=== PATIENT | female | born 1965 | race Asian ===

== ENCOUNTER 2019-06-03 21:07 | Emergency (ER) | payer BC ==
[~2019-06-03] VITALS: Ht 152.4 cm; Wt 58.5 kg
[2019-06-03 21:21] VITALS: BP_SYST 114
[2019-06-03 23:20] VITALS: BP_SYST 116
== END 2019-06-03 23:20 | disposition home or self-care (01) ==
LOC: SED 21:07
DX: J02.9 Acute pharyngitis, unspecified (principal); G89.29 Other chronic pain; R10.11 Right upper quadrant pain
CPT/HCPCS: 99281